=== PATIENT | male | born 2000 | race Caucasian/White ===

== ENCOUNTER 2022-10-30 15:39 | Emergency (ER) | payer OTHER, SELFPAY ==
[2022-10-30 15:49] VITALS: BP 106/72; PULSE 73; RESP 16; TEMP 37.2; O2SAT 97; BMI 19.9
--- NOTE | 2022-10-30 19:35 | ED.GENADULT ---
HPI - General Adult General Chief complaint: Headache/Migraine Stated complaint: Right neck pain, leads to migraine Time Seen by Provider: 10/30/22 15:42 History of Present Illness HPI narrative: 22 year old young man who woke about 10 days ago with some right-sided neck pain. No difficulty swallowing or sore throat. has progressed to headache and after some googling, concerns have developed of meningitis or perhaps a vascular issue. This was atraumatic. No shortness of breath. No radiation into upper extremities. No fever, no rashes. Hurts more to turn neck to left actually. Thought should get checked out as accompanying girlfriend(?) to ED for her own health concerns. Related Data Allergies Allergy/AdvReac Type Severity Reaction Status Date / Time No Known Drug Allergies Allergy Verified 10/30/22 15:58 Review of Systems Status of ROS: Reports: 6 or more systems reviewed and unremarkable except as noted in History and below Exam Narrative: Exam Narrative: Pleasant. Slim. NAD. Head is atraumatic. CN 2-12 appear to be intact. Neck is quite supple. No swelling or asymmetry appreciated. No pulsatile masses. Mildly sore to palpation in the right paracervical musculature. Oropharynx is wnl. Dentition in good repair. Back nt. Lungs clear. Heart in a regular rate and rhythm. Full strength in extremities and well perfused with intact and equal and upper extremity pulses. Const: Vital Signs, click to edit/add: Vital Signs - 24 hr 10/30/22 15:49 Temperature 99.0 F Pulse Rate [Pulse Oximeter] 73 Respiratory Rate 16 Blood Pressure [Ri ght Upper Arm] 106/72 Pulse Oximetry 97 Oxygen Delivery Me thod Room Air Course Vital Signs Vital signs: Initial Vital Signs Temperature 99.0 F 10/30/22 15:49 Temperature Source Temporal Artery Scan 10/30/22 15:49 Pulse Rate 73 10/30/22 15:49 Pulse Rhythm 10/30/22 15:49 Pulse Strength 3+ Normal 10/30/22 15:49 Respiratory Rate 16 10/30/22 15:49 Blood Pressure 106/72 10/30/22 15:49 Blood Pressure Mean 83 10/30/22 15:49 Pulse Oximetry 97 10/30/22 15:49 Oxygen Delivery Method 10/30/22 15:49 Vital Signs Temperature 99.0 F 10/30/22 15:49 Pulse Rate 73 02/01/23 15:49 Respiratory Rate 16 10/30/22 15:49 Blood Pressure 106/72 10/30/22 15:49 Pulse Oximetry 97 10/30/22 15:49 Oxygen Delivery Method 10/30/22 15:49 Temperature 99.0 F 10/30/22 15:49 Pulse Rate 73 10/30/22 15:49 Respiratory Rate 16 10/30/22 15:49 Blood Pressure 106/72 10/30/22 15:49 Pulse Oximetry 97 10/30/22 15:49 Oxygen Delivery Method 10/30/22 15:49 Medical Decision Making MDM Narrative Medical decision making narrative: is not demonstrating any meningeal signs. possibly more of facet irritation and subsequent muscular irritation/spasm has no risk factors for vascular disruption. offered injection of anesthesia in muscles of neck and trapezius for immediate relief; he declined. offered temporary soft collar Discharge Plan Discharge Clinical Impression: Acute torticollis Patient Disposition: Home, Self-Care Condition: Stable Additional Instructions: In the short term, and maybe with a little food can take up to 800 mg of ibuprofen per dose. Maybe a little less irritating on the stomach would be up to 1000 mg of acetaminophen per dose. These can actually be combined if necessary. Alternative to the ibuprofen could be up to 500 mg naproxen 2 times daily. Warm moist packs alternating with cold. Neck pull-down stretches in 3 planes as demonstrated a little deeper each time and do them a couple times daily. See handout on upper back stretches/strengthening as well. I'm reaching out to one of the sports medicine doctors, Dr. Saleh, if this continues to be a problem so that you are on their radar. He sees patients at the [facility]. You might consider also an appointment with a chiropractor locally. Maybe Nahum Villeda [phone] or Marina Booker [phone] Mentholatum or capsaicin pain creams or balms might be helpful. Remember to try small spot first as this is more sensitive neck tissue. Also [id number] are lidocaine patches. Wear the soft collar for comfort over this next week. Do not to have it on all the time. It is really just to help muscles relax a little bit. Do not wear constantly beyond a week. Activity Level: No Restrictions Discharge Diet: Regular Stand Alone Forms: MyHealth Info Instructions Discharge Comment: pt placed in soft collar
== END 2022-10-30 17:00 | disposition home or self-care (01) ==
LOC: ED 16:41
PROVIDERS: Emergency Provider Family Medicine
DX: M43.6 Torticollis (principal)
CPT/HCPCS: 99282; 99283

== ENCOUNTER 2022-12-04 16:45 | Outpatient (RCR) | payer OTHER, SELFPAY | END 2023-04-02 10:48 | disposition home or self-care (01) | PROVIDERS: Visit Provider Physician Assistant | DX: M95.8 Other specified acquired deformities of musculoskeletal system (principal); M62.81 Muscle weakness (generalized); R29.3 Abnormal posture; M54.2 Cervicalgia; Z51.89 Encounter for other specified aftercare | CPT/HCPCS: 97110; 97140; 97161 ==